=== PATIENT | male | born 1960 | race Caucasian/White ===

== ENCOUNTER 2017-04-14 15:49 | Emergency (ER) | payer BC ==
[~2017-04-14] VITALS: Ht 177.8 cm; Wt 80.0 kg
[2017-04-14 15:57] VITALS: Ht 177.8 cm; Wt 80.0 kg
[2017-04-14] MEDS ORDERED: SOD CHLORIDE 0.9% 500 ML IV STA (16:28)
[2017-04-14] MEDS ORDERED: KETOROLAC 30 MG INJ IV STA (16:28)
--- NOTE | 2017-04-14 16:46 | ERD ---
ER Documentation Chief Complaint Date/Time DATE: 04/14/17 TIME: 16:44 Chief Complaint CHEST CONGESTION FEVER X 4 DAYS. HPI Very pleasant 56-year-old male comes in for having cough for 4 days. Denies chest pain but states that when he coughs his head hurts worse. He has had a headache for 3 days. Has had chills and felt warm. Has had generalized malaise. ROS All systems reviewed and are negative except as per history of present illness. Medications Home Meds Active Scripts Naproxen* (Naproxen*) 500 Mg Tablet, 500 MG PO BID Y for PAIN, #10 TAB Prov:SUDHA MEJIAS DO 04/14/17 Albuterol Sulfate* (Ventolin HFA*) 18 Gm Hfa.aer.ad, 2 PUFF INHALATION Q4H, #1 INHALER Prov:SUDHA MEJIAS DO 04/14/17 Levofloxacin* (Levaquin*) 750 Mg Tablet, 750 MG PO DAILY for 4 Days, TAB start tommorrow. 04/15 Prov:SUDHA MEJIAS DO 04/14/17 Allergies Allergies: Coded Allergies: No Known Allergy (Unverified , 04/14/17) Physical Exam Vitals Vital Signs Date Time Temp Pulse Resp B/P Pulse Ox O2 Delivery O2 Flow Rate FiO2 04/14/17 15:57 99.9 105 18 145/81 97 Physical Exam Const: [] Mild distress Head: Atraumatic Eyes: Normal Conjunctiva EOMI, PERRL ENT: Normal External Ears, Nose and Mouth. Resp: Clear to auscultation bilaterally Cardio: Mild regular tachycardia, no murmurs Skin: No petechiae or rashes Ext: No cyanosis, or edema Neur: Awake and alert oriented 3, no focal deficit Result Diagram: 04/14/17 1640 04/14/17 1640 Results 24 hrs Laboratory Tests Test 04/14/17 16:40 04/14/17 17:20 White Blood Count 8.510^3/ul Red Blood Count 4.3710^6/ul Hemoglobin 13.9g/dl Hematocrit 41.9% Mean Corpuscular Volume 95.9fl Mean Corpuscular Hemoglobin 31.8pg Mean Corpuscular Hemoglobin Concent 33.2g/dl Red Cell Distribution Width 11.7% Platelet Count 17569^3/UL Mean Platelet Volume 11.1fl Neutrophils % 64.1% Lymphocytes % 22.1% Monocytes % 8.8% Eosinophils % 4.0% Basophils % 0.5% Nucleated Red Blood Cells % 0.0/100WBC Neutrophils # 5.510^3/ul Lymphocytes # 1.910^3/ul Monocytes # 0.810^3/ul Eosinophils # 0.310^3/ul Basophils # 0.010^3/ul Nucleated Red Blood Cells # 0.010^3/ul Sodium Level 142mmol/L Potassium Level 4.3mmol/L Chloride Level 103mmol/L Carbon Dioxide Level 28mmol/L Anion Gap 15 Blood Urea Nitrogen 10mg/dl Creatinine 0.88mg/dl Glucose Level 106mg/dl Calcium Level 9.3mg/dl Troponin I < 0.012ng/ml Current Medications Medications (Trade) Dose Ordered Sig/Liborio Route PRN Reason Start Time Stop Time Status Last Admin Dose Admin Sodium Chloride (NS) 500 ml @ 500 mls/hr Q1H STAT IV 04/14/17 16:28 04/14/17 17:27 DC 04/14/17 16:46 Ketorolac Tromethamine 30 mg 30 mg ONCE STAT IV 04/14/17 16:28 04/14/17 16:30 DC 04/14/17 16:46 Levofloxacin/ Dextrose (Levaquin 500mg/ D5W 100 ml (Pmx)) 100 ml @ 100 mls/hr ONCE ONCE IVPB 04/14/17 18:30 04/14/17 19:29 04/14/17 18:29 Procedures/MDM Community-acquired pneumonia with a right lung infiltrate. No elevated white count. Patient was initially tachycardic which resolved. No signs of cardiac ischemia as reason for shortness of breath. Was given Levaquin 1 dose in the emergency room to begin treating the infection quickly patient was having increasing distress at night. Does not want to be admitted to the hospital and I feel it is appropriate to treat as an outpatient. Is also given Toradol which did decrease his headache. I have low suspicion for subarachnoid hemorrhage. Discharging primary care follow-up and return precautions. EKG interpretation: Normal sinus rhythm rate of 97, normal axis, no ST or T- wave changes concerning for acute ischemia. Normal EKG chestX-ray interpretation: Right lateral lung infiltrate, no pulmonary edema, no pneumothorax, no fractures. Departure Diagnosis: Primary Impression: Community acquired pneumonia Condition: Stable SUDHA MEJIAS DO Apr 14, 2017 16:46
[2017-04-14 16:57] LABS: BASOPHILS % 0.5 % (0.0-2.0); EOSINOPHILS # 0.3 10^3/ul (0.0-0.5); HEMATOCRIT 41.9 % (42.0-52.0); HEMOGLOBIN 13.9 g/dl (14.0-18.0); LYMPHOCYTES # 1.9 10^3/ul (0.8-2.9); LYMPHOCYTES % 22.1 % (15.0-51.0); MEAN CORPUSCULAR HEMOGLOBIN 31.8 pg (29.0-33.0); MEAN CORPUSCULAR HGB CONC 33.2 g/dl (32.0-37.0); MEAN CORPUSCULAR VOLUME 95.9 fl (82.0-101.0); MEAN PLATELET VOLUME 11.1 fl (7.4-10.4); MONOCYTE # 0.8 10^3/ul (0.3-0.9); MONOCYTES % 8.8 % (0.0-11.0); NEUTROPHIL # 5.5 10^3/ul (1.6-7.5); NEUTROPHILS % 64.1 % (39.0-77.0); PLATELET COUNT 201 10^3/UL (140-415); RED BLOOD COUNT 4.37 10^6/ul (4.70-6.10); RED CELL DISTRIBUTION WIDTH 11.7 % (11.5-14.5); WHITE BLOOD COUNT 8.5 10^3/ul (4.8-10.8)
[2017-04-14 17:20] LABS: CALCIUM 9.3 mg/dl (8.4-10.2); CREATININE 0.88 mg/dl (0.61-1.24); POTASSIUM 4.3 mmol/L (3.5-5.1)
--- NOTE | 2017-04-14 17:52 | RADRPT ---
PROCEDURE: Chest x-ray CLINICAL INDICATION: Cough and chest pain TECHNIQUE: Chest single view COMPARISON: None FINDINGS: The heart is normal in size. The pulmonary vessels are normal in caliber. This ground-glass infilt rate in the right lower lobe consistent with pneumonia. Left lung is clear. Costophrenic angles are sharp. IMPRESSION: Ground-glass slightly wedge-shaped opacity in the right lower lobe. This likely represents an area o f pneumonia. However, given the slightly wedge-shaped appearance area of infarction is not excluded. RPTAT: HH .Anthony Barth MD, MD Date Time Electronically viewed and signed by .Anthony Barth MD, on 04/14/2017 17:52 .W/
[2017-04-14] MEDS ORDERED: LEVOFLOXACIN 500MG/D5W (PMX) 100 ML IVPB ONE (18:30)
[2017-04-14] MEDS ORDERED: LEVO750T25 PO (18:41)
[2017-04-14] MEDS ORDERED: ALBU18HF INHALATION (18:42)
[2017-04-14] MEDS ORDERED: NAPR-688 PO (18:42)
[2017-04-14 19:10] VITALS: BP 132/78; PULSE 80; RESP 17
== END 2017-04-14 19:00 | disposition home or self-care (01) ==
LOC: E/R 15:49
DX: J18.9 Pneumonia, unspecified organism (principal); R07.9 Chest pain, unspecified
CPT/HCPCS: 36415; 71010; 80048; 84484; 85025; 93005; 96374; 96375; 99285; J1885; J7040

== ENCOUNTER → 2017-04-29 | Outpatient (CLI) | payer BC ==
[~2017-04-29] MED LIST: ALBU18HF INHALATION; LEVO750T25 PO; NAPR-688 PO
[2017-04-29 09:03] LABS: BASOPHIL # 0.1 10^3/ul (0.0-0.1); BASOPHILS % 1.3 % (0.0-2.0); EOSINOPHILS # 0.4 10^3/ul (0.0-0.5); EOSINOPHILS % 4.8 % (0.0-7.0); HEMATOCRIT 44.9 % (42.0-52.0); LYMPHOCYTES # 2.6 10^3/ul (0.8-2.9); LYMPHOCYTES % 28.2 % (15.0-51.0); MEAN CORPUSCULAR HEMOGLOBIN 31.2 pg (29.0-33.0); MEAN CORPUSCULAR HGB CONC 33.4 g/dl (32.0-37.0); MEAN CORPUSCULAR VOLUME 93.3 fl (82.0-101.0); MEAN PLATELET VOLUME 9.9 fl (7.4-10.4); MONOCYTE # 0.4 10^3/ul (0.3-0.9); MONOCYTES % 4.9 % (0.0-11.0); NEUTROPHIL # 5.4 10^3/ul (1.6-7.5); NEUTROPHILS % 59.7 % (39.0-77.0); PLATELET COUNT 255 10^3/UL (140-415); RED BLOOD COUNT 4.81 10^6/ul (4.70-6.10); RED CELL DISTRIBUTION WIDTH 11.9 % (11.5-14.5)
[2017-04-29 09:06] LABS: ADD UMIC NO; UR ASCORBIC ACID NEGATIVE (NEGATIVE); UR BILIRUBIN (Dip) NEGATIVE (NEGATIVE); UR BLOOD (Dip) NEGATIVE (NEGATIVE); UR CLARITY CLEAR (CLEAR); UR COLOR YELLOW (YELLOW); UR GLUCOSE (Dip) NEGATIVE (NEGATIVE); UR KETONES (Dip) NEGATIVE (NEGATIVE); UR LEUKOCYTE ESTERASE (Dip) NEGATIVE Leu/ul (NEGATIVE); UR NITRITE (Dip) NEGATIVE (NEGATIVE); UR SPECIFIC GRAVITY (Dip) 1.018 (1.003-1.030); UR TOTAL PROTEIN (Dip) NEGATIVE (NEGATIVE); UR UROBILINOGEN (Dip) NEGATIVE (NEGATIVE)
[2017-04-29 09:23] LABS: BILIRUBIN,INDIRECT 0.3 mg/dl (0-1.1); BILIRUBIN,TOTAL 0.3 mg/dl (0.2-1.3); CALCIUM 9.4 mg/dl (8.4-10.2); CREATININE 0.91 mg/dl (0.61-1.24); POTASSIUM 4.3 mmol/L (3.5-5.1)
[2017-04-29 09:53] LABS: PROSTATE SPECIFIC ANTIGEN 23.1 ng/ml (0.0-4.0); THYROID STIMULATING HORMONE 1.59 MIU/L (0.465-4.680)
== END | disposition home or self-care (01) ==
LOC: LAB 08:26
PROVIDERS: ATTEND Legal Medicine
DX: Z00.00 Encounter for general adult medical examination without abnormal findings (principal)
CPT/HCPCS: 80053; 81003; 82306; 84153; 84154; 84403; 84443; 85025; 85651; 86140; 87086

== ENCOUNTER → 2017-05-19 | Outpatient (CLI) | payer BC | END | disposition home or self-care (01) | LOC: LAB 16:04 | PROVIDERS: ATTEND Legal Medicine | DX: R97.20 Elevated prostate specific antigen [PSA] (principal) | CPT/HCPCS: 84153; 84154 ==

== ENCOUNTER → 2017-08-25 | Outpatient (CLI) | END | disposition home or self-care (01) ==

== ENCOUNTER → 2018-01-10 | Outpatient (CLI) | END | disposition home or self-care (01) ==

== ENCOUNTER → 2018-07-11 | Outpatient (CLI) | payer BC | END | disposition home or self-care (01) | LOC: LAB 08:44 | PROVIDERS: ATTEND Legal Medicine | DX: E78.5 Hyperlipidemia, unspecified (principal); K21.9 Gastro-esophageal reflux disease without esophagitis; E11.9 Type 2 diabetes mellitus without complications; R10.9 Unspecified abdominal pain; I25.10 Atherosclerotic heart disease of native coronary artery without angina pectoris; N40.0 Benign prostatic hyperplasia without lower urinary tract symptoms; N52.9 Male erectile dysfunction, unspecified; I10 Essential (primary) hypertension; E03.9 Hypothyroidism, unspecified; D64.9 Anemia, unspecified | CPT/HCPCS: 80053; 80061; 81001; 82150; 82306; 82607; 82728; 82746; 83540; 83690; 84153; 84154; 84403; 84439; 84443; 85025 ==

== ENCOUNTER 2018-09-17 16:05 | Emergency (ER) | payer BC ==
[~2018-09-17] VITALS: Ht 180.3 cm; Wt 92.7 kg
[2018-09-17 16:11] VITALS: BP 114/65; PULSE 100; RESP 16; Ht 180.3 cm; Wt 92.7 kg
--- NOTE | 2018-09-17 16:16 | ERD ---
ER Documentation Chief Complaint Chief Complaint LT ARM LAC/ALUVSION FROM SAW HPI 57-year-old male, previously, presents to the emergency department, complaining of left arm laceration from an electric saw that occurred approximately 30 minutes prior to arrival, the patient was brought in by ambulance. The pain is 7/10. He ROS All systems reviewed and are negative except as per history of present illness. Medications Home Meds Active Scripts Naproxen* (Naproxen*) 500 Mg Tablet, 500 MG PO BID PRN for PAIN, #10 TAB Prov:SUDHA MEJIAS DO 04/14/17 Albuterol Sulfate* (Ventolin HFA*) 18 Gm Hfa.aer.ad, 2 PUFF INHALATION Q4H, #1 INHALER Prov:SUDHA MEJIAS DO 04/14/17 Levofloxacin* (Levaquin*) 750 Mg Tablet, 750 MG PO DAILY for 4 Days, TAB start tommorrow. 04/15 Prov:SUDHA MEJIAS DO 04/14/17 Allergies Allergies: Coded Allergies: No Known Allergy (Unverified , 04/14/17) PMhx/Soc Hx Alcohol Use: Yes (SOCIALLY) Hx Substance Use: No Hx Tobacco Use: No Physical Exam Vitals Vital Signs Date Temp Pulse Resp B/P (MAP) Pulse Ox O2 O2 Flow FiO2 Time Delivery Rate 09/17/18 97.9 100 16 114/65 100 16:11 (81) Physical Exam Const: No acute distress Head: Atraumatic Eyes: Normal Conjunctiva ENT: Normal External Ears, Nose and Mouth. Neck: Full range of motion. No meningismus. Resp: Clear to auscultation bilaterally Cardio: Regular rate and rhythm, no murmurs Abd: Soft, non tender, non distended. Normal bowel sounds Skin: No petechiae or rashes Back: No midline or flank tenderness Ext: No cyanosis, or edema Neur: Awake and alert Psych: Normal Mood and Affect Results 24 hrs Current Medications Medications Dose Sig/Liborio Start Time Status Last (Trade) Ordered Route PRN Stop Time Admin Dose Reason Admin Diphtheria/ 0.5 ml ONCE ONCE 09/17/18 DC 09/17/18 Tetanus/Acell IM* 16:30 16:37 Pertussis 09/17/18 16:31 (Adacel) Lidocaine 4 applic ONCE STAT 09/17/18 DC 3/17/19 (Lmx 4% Plus) TOP 16:19 16:35 09/17/18 16:25 Ketorolac 15 mg ONCE STAT 09/17/18 DC 09/17/18 Tromethamine IV 16:19 16:36 (Toradol) 09/17/18 16:25 Cefazolin 50 ml @ ONCE IVPB 09/17/18 DC 09/17/18 Sodium 100 mls/hr 16:30 16:36 09/17/18 16:59 Lidocaine/ 20 ml ONCE ONCE 09/17/18 DC Epinephrine INJ 16:30 (Xylocaine 09/17/18 16:31 2%/ Epi (Mdv) 20 ml) Procedures/MDM Vital signs stable, the patient was evaluated for foreign body, open fracture, nerve/vascular/tendon injury. Neurovascular exam intact. Pertinent data: Procedure: Laceration repair The procedure was explained and consent obtained. Anesthesia: 1% lidocaine [with] epinephrine locally Location: [] Tendon/Joint/Nerves: No injury Foreign body: None detected after copious irrigation and exploration Technique: Simple Interrupted Sutures Complexity: No subcutaneous sutures/mucosal repair/edge excision Post Closure Length: [] cm The patient tolerated the procedure well without complications. clinical impression and possible complications like infection and a scar where discussed with [] who agreed with management. The patient is stable to be treated outpatient and will be discharged home with a Rx for [], some side effects of prescribed medications (headache, rash, nausea, vomiting, diarrhea, interactions with other medications) were reviewed. The patient was instructed to follow up with the primary care provider in the next 48h for wound check. If symptoms persist, worsen or new symptoms develop, then patient should return to the ED immediately. Stitches can be removed in days. Instructions explained and given directly by me to the patient with acknowledgment and demonstrated understanding. Disclaimer: Inadvertent spelling and grammatical errors are likely due to EHR/dictation software use and do not reflect on the overall quality of patient care. Also, please note that the electronic time recorded on this note does not necessarily reflect the actual time of the patient encounter. Departure Diagnosis: Primary Impression: Laceration of left forearm Condition: Stable Additional Instructions: Thank you very much for allowing us to participate in your care. Your health and safety is our top priority at [facility]. Call your primary care doctor TOMORROW for an appointment during the next 2-4 days and bring all the information and medications prescribed. Have prescriptions filled and follow precisely the directions on the label. If the symptoms get worse and your provider is unavailable, return to the Emergency Department immediately. KAYLEEN ELLIOTT MD Sep 17, 2018 16:16
[2018-09-17] MEDS ORDERED: KETOROLAC 30 MG INJ IV STA (16:19)
[2018-09-17] MEDS ORDERED: LIDOCAINE 4% CR TOP STA (16:19)
[2018-09-17] MEDS ORDERED: DIPHTH/TET/ACEL PERTUSS (ADULT) 0.5 ML VIAL IM* ONE (16:30)
[2018-09-17] MEDS ORDERED: CEFAZOLIN 1 GM/50 ML (PMX) 50 ML IVPB SCH (16:30)
[2018-09-17] MEDS ORDERED: LIDOCAINE 2%/EPI (MDV) 20ML INJ INJ ONE (16:30)
[2018-09-17] MEDS ORDERED: ACET325T33 PO (18:00)
[2018-09-17] MEDS ORDERED: HYDR-4011 PO (18:00)
[2018-09-17] MEDS ORDERED: CEPH-443 PO (18:00)
== END 2018-09-17 18:39 | disposition home or self-care (01) ==
LOC: FTE 16:05
DX: S51.812A Laceration without foreign body of left forearm, initial encounter (principal); W29.3XXA Contact with powered garden and outdoor hand tools and machinery, initial encounter; Y92.9 Unspecified place or not applicable; Z23 Encounter for immunization
CPT/HCPCS: 12001; 73080; 90471; 90715; 96365; 96366; 96375; 99284; J0690; J1885

== ENCOUNTER 2018-09-28 20:09 | Emergency (ER) | payer BC ==
[~2018-09-28] VITALS: Ht 180.3 cm; Wt 95.3 kg
[~2018-09-28 20:09] MED LIST changes: +ACET325T33 PO; +CEPH-443 PO; +HYDR-4011 PO
[2018-09-28 20:19] VITALS: BP 136/74; PULSE 85; RESP 18; Ht 180.3 cm; Wt 95.3 kg
--- NOTE | 2018-09-28 22:58 | ERD ---
ER Documentation Chief Complaint Chief Complaint suture removal left arm, here about 11 days ago for repair HPI History of Present Illness: Patient coming in today with complaint of suture removal to left upper arm. Patient reports coming to [facility] ER on 09/17/18 for laceration repair due to getting cut with the blade. Patient denies any complications. Patient reports taking full course of antibiotics. ROS All systems reviewed and are negative except as per history of present illness. Medications Home Meds Active Scripts Hydrocodone/Acetaminophen ([place] 5-325 Tablet) 1 Each Tablet, 1 TAB PO QHS PRN for PAIN for 5 Days, #5 TAB Prov:KAYLEEN ELLIOTT MD 09/17/18 Cephalexin* (Keflex*) 500 Mg Capsule, 500 MG PO BID for 5 Days, CAP Prov:KAYLEEN ELLIOTT MD 09/17/18 Acetaminophen* (Tylenol*) 325 Mg Tablet, 2 TAB PO Q8 PRN for PAIN AND OR ELEVATED TEMP, #20 TAB Prov:KAYLEEN ELLIOTT MD 09/17/18 Naproxen* (Naproxen*) 500 Mg Tablet, 500 MG PO BID PRN for PAIN, #10 TAB Prov:SUDHA MEJIAS DO 04/14/17 Albuterol Sulfate* (Ventolin HFA*) 18 Gm Hfa.aer.ad, 2 PUFF INHALATION Q4H, #1 INHALER Prov:SUDHA MEJIAS DO 04/14/17 Levofloxacin* (Levaquin*) 750 Mg Tablet, 750 MG PO DAILY for 4 Days, TAB start tommorrow. 04/15 Prov:SUDHA MEJIAS DO 04/14/17 Allergies Allergies: Coded Allergies: No Known Allergy (Unverified , 04/14/17) PMhx/Soc History of Surgery: Yes (hemroidectomy) Anesthesia Reaction: No Hx Neurological Disorder: No Hx Cardiac Disorders: No Hx Psychiatric Problems: No Hx Miscellaneous Medical Probl: Yes (left arm celulitus) Hx Alcohol Use: Yes (SOCIALLY) Hx Substance Use: No Hx Tobacco Use: No FmHx Family History: No diabetes Physical Exam Vitals Vital Signs Date Temp Pulse Resp B/P (MAP) Pulse Ox O2 O2 Flow FiO2 Time Delivery Rate 09/28/18 98.0 85 18 136/74 99 20:19 (94) Physical Exam Const: No acute distress Head: Atraumatic Eyes: Normal Conjunctiva ENT: Normal External Ears, Nose and Mouth. Neck: Full range of motion. No meningismus. Resp: Clear to auscultation bilaterally Cardio: Regular rate and rhythm, no murmurs Abd: Soft, non tender, non distended. Normal bowel sounds Skin: No petechiae or rashes. Healing laceration noted to left upper arm, 12 sutures present, no dehiscence, no purulent drainage, no erythema, no warmth. Back: No midline or flank tenderness Ext: No cyanosis, or edema Neur: Awake and alert Psych: Normal Mood and Affect Procedures/MDM ED course includes a thorough examination and history. ED course includes suture removal. Suture Removal by me: 12 Sutures removed with tweezers and scissors without incident. Wound shows no evidence of infection, foreign body, neurologic injury, vascular injury, open joint or tendon laceration. Patient to follow up PRN. Low suspicion for life-threatening medical emergency. Otherwise healthy patient presenting with constellation of symptoms likely representing uncomplicated suture removal encounter as characterized by history, physical exam findings. No respiratory distress, otherwise relatively well appearing and nontoxic. Patient educated on diagnoses, prescriptions, follow-up care, return precautions. Strict return precautions given for worsening condition; questions answered discharge. Disposition for discharge with followup in PRN with PCP/clinic. Departure Diagnosis: Primary Impression: Encounter for removal of sutures Condition: Stable Patient Instructions: Suture Removal, No Complication Referrals: [facility] SCRUGGS (PCP) [facility] YOU HAVE RECEIVED A MEDICAL SCREENING EXAM AND THE RESULTS INDICATE THAT YOU DO NOT HAVE A CONDITION THAT REQUIRES URGENT TREATMENT IN THE EMERGENCY DEPARTMENT. FURTHER EVALUATION AND TREATMENT OF YOUR CONDITION CAN WAIT UNTIL YOU ARE SEEN IN YOUR DOCTORS OFFICE WITHIN THE NEXT 1-2 DAYS. IT IS YOUR RESPONSIBILITY TO MAKE AN APPOINTMENT FOR FOLOW-UP CARE. IF YOU HAVE A PRIMARY DOCTOR --you should call your primary doctor and schedule an appointment IF YOU DO NOT HAVE A PRIMARY DOCTOR YOU CAN CALL OUR PHYSICIAN REFERRAL HOTLINE AT IF YOU CAN NOT AFFORD TO SEE A PHYSICIAN YOU CAN CHOSE FROM THE FOLLOWING COMMUNITY CLINICS [facility] [address] [facility]. [facility] [address] [facility]. [facility] [address] [facility]. [facility] [address] [facility]. [facility] [address] [facility]. [facility]. [address] [facility]. [facility] YOU HAVE RECEIVED A MEDICAL SCREENING EXAM AND THE RESULTS INDICATE THAT YOU DO NOT HAVE A CONDITION THAT REQUIRES URGENT TREATMENT IN THE EMERGENCY DEPARTMENT. FURTHER EVALUATION AND TREATMENT OF YOUR CONDITION CAN WAIT UNTIL YOU ARE SEEN IN YOUR DOCTORS OFFICE WITHIN THE NEXT 1-2 DAYS. IT IS YOUR RESPONSIBILITY TO MAKE AN APPOINTMENT FOR FOLOW-UP CARE. IF YOU HAVE A PRIMARY DOCTOR --you should call your primary doctor and schedule and appointment IF YOU DO NOT HAVE A PRIMARY DOCTOR YOU CAN CALL OUR PHYSICIAN REFERRAL HOTLINE AT . IF YOU CAN NOT AFFORD TO SEE A PHYSICIAN YOU CAN CHOSE FROM THE FOLLOWING [facility] INSTITUTIONS: [facility] [address] [place] [address] [facility] [address] [place] [address] [facility] + [facility] [address] [place] [address] Additional Instructions: Follow-up with your primary care doctor as needed. BRAN RODAS NP Sep 28, 2018 22:58
== END 2018-09-28 20:48 | disposition home or self-care (01) ==
LOC: FTE 20:09
DX: Z48.02 Encounter for removal of sutures (principal)
CPT/HCPCS: 99281

== ENCOUNTER 2018-11-07 18:55 | Emergency (ER) | payer BC, MEDICAID ==
[~2018-11-07] VITALS: Ht 180.3 cm; Wt 94.1 kg
[2018-11-07 19:12] VITALS: Ht 180.3 cm; Wt 94.1 kg
--- NOTE | 2018-11-07 19:13 | ERD ---
ER Documentation Chief Complaint Chief Complaint cough HPI The patient is a 57-year-old male, presenting to the ER because of persistent cough for the last 5 weeks, nasal discharge for the last 3 days, denies fever chills, neck pain, chest pain, dyspnea, abdominal pain, vomiting, dizzy, diarrhea. He does not smoke, drinks socially Past medical history: None Past surgical history: Hemorrhoidectomy ROS All systems reviewed and are negative except as per history of present illness. Medications Home Meds Active Scripts Promethazine/Phenyleph/Codeine (Beynxrsogpbq-YC-Vkhyfws Syrup) 118 Ml Syrup, 10 ML PO Q6, #120 ML Prov:SRIDHAR HARRIS MD 11/07/18 Loratadine/Pseudoephedrine (CLARITIN-D 24 HOUR TABLET) 1 Each Tab.er.24h, 1 TAB PO DAILY, #10 TAB Prov:SRIDHAR HARRIS MD 11/07/18 Dextromethorphan Hb-Promethazine Hcl* (Promethazine DM* Syrup) 473 Ml Syrup, 10 ML PO Q6 PRN for COUGH, #120 ML Prov:SRIDHAR HARRIS MD 11/07/18 Azithromycin* (Zithromax*) 250 Mg Tablet, 250 MG PO .CoreyPACK DIRECTED, #6 TAB TAKE 500 MG (2 TABS) THE FIRST DAY THEN 250 MG (1 TAB) DAYS 2-5 Prov:SRIDHAR HARRIS MD 11/07/18 Hydrocodone/Acetaminophen ([place] 5-325 Tablet) 1 Each Tablet, 1 TAB PO QHS PRN for PAIN for 5 Days, #5 TAB Prov:KAYLEEN ELLIOTT MD 09/17/18 Cephalexin* (Keflex*) 500 Mg Capsule, 500 MG PO BID for 5 Days, CAP Prov:KAYLEEN ELLIOTT MD 09/17/18 Acetaminophen* (Tylenol*) 325 Mg Tablet, 2 TAB PO Q8 PRN for PAIN AND OR ELEVATED TEMP, #20 TAB Prov:KAYLEEN ELLIOTT MD 09/17/18 Naproxen* (Naproxen*) 500 Mg Tablet, 500 MG PO BID PRN for PAIN, #10 TAB Prov:SUDHA MEJIAS DO 04/14/17 Albuterol Sulfate* (Ventolin HFA*) 18 Gm Hfa.aer.ad, 2 PUFF INHALATION Q4H, #1 INHALER Prov:SUDHA MEJIAS DO 04/14/17 Levofloxacin* (Levaquin*) 750 Mg Tablet, 750 MG PO DAILY for 4 Days, TAB start tommorrow. 04/15 Prov:SUDHA MEJIAS DO 04/14/17 Allergies Allergies: Coded Allergies: No Known Allergy (Unverified , 04/14/17) PMhx/Soc History of Surgery: Yes (hemroidectomy) Anesthesia Reaction: No Hx Neurological Disorder: No Hx Cardiac Disorders: No Hx Psychiatric Problems: No Hx Miscellaneous Medical Probl: Yes (left arm celulitus) Hx Alcohol Use: Yes (SOCIALLY) Hx Substance Use: No Hx Tobacco Use: No Physical Exam Physical Exam Const: No acute distress. Head: Atraumatic. Eyes: Normal Conjunctiva. ENT: Normal External Ears, Nose and Mouth. Neck: Full range of motion. No meningismus. Resp: Mild bilateral expiratory wheezes Cardio: Regular rate and rhythm. Abd: Soft, non distended, normal bowel sounds, non tender. Skin: No petechiae or rashes. Back: No midline or flank tenderness. Ext: No cyanosis, or edema. Neur: Awake and alert. No focal deficit Psych: Normal Mood and Affect. Results 24 hrs Laboratory Tests Test 11/07/18 19:32 11/07/18 19:41 White Blood Count 11.6 10^3/ul Red Blood Count 4.56 10^6/ul Hemoglobin 14.7 g/dl Hematocrit 43.8 % Mean Corpuscular Volume 96.1 fl Mean Corpuscular Hemoglobin 32.2 pg Mean Corpuscular Hemoglobin Concent 33.6 g/dl Red Cell Distribution Width 11.9 % Platelet Count 181 10^3/UL Mean Platelet Volume 11.1 fl Immature Granulocytes % 0.300 % Neutrophils % 80.6 % Lymphocytes % 13.2 % Monocytes % 5.0 % Eosinophils % 0.6 % Basophils % 0.3 % Nucleated Red Blood Cells % 0.0 /100WBC Immature Granulocytes # 0.040 10^3/ul Neutrophils # 9.4 10^3/ul Lymphocytes # 1.5 10^3/ul Monocytes # 0.6 10^3/ul Eosinophils # 0.1 10^3/ul Basophils # 0.0 10^3/ul Nucleated Red Blood Cells # 0.0 10^3/ul Prothrombin Time 12.4 Sec Prothrombin Time Ratio 1.0 INR International Normalized Ratio 0.91 Activated Partial Thromboplast Time 29.8 Sec Sodium Level 141 mmol/L Potassium Level 4.0 mmol/L Chloride Level 106 mmol/L Carbon Dioxide Level 26 mmol/L Anion Gap 9 Blood Urea Nitrogen 13 mg/dl Creatinine 0.84 mg/dl Est Glomerular Filtrat Rate mL/min > 60 mL/min Glucose Level 120 mg/dl POC Venous Lactate 1.6 mmol/L Calcium Level 9.5 mg/dl Total Bilirubin 0.3 mg/dl Direct Bilirubin 0.00 mg/dl Indirect Bilirubin 0.3 mg/dl Aspartate Amino Transf (AST/SGOT) 23 IU/L Alanine Aminotransferase (ALT/SGPT) 26 IU/L Alkaline Phosphatase 45 IU/L Troponin I < 0.012 ng/ml Total Protein 7.1 g/dl Albumin 4.2 g/dl Globulin 2.90 g/dl Albumin/Globulin Ratio 1.44 Urine Color YELLOW Urine Clarity CLEAR Urine pH 7.0 Urine Specific [place] 1.014 Urine Ketones NEGATIVE mg/dL Urine Nitrite NEGATIVE mg/dL Urine Bilirubin NEGATIVE mg/dL Urine Urobilinogen NEGATIVE mg/dL Urine Leukocyte Esterase NEGATIVE Rebecca/ul Urine Hemoglobin NEGATIVE mg/dL Urine Glucose NEGATIVE mg/dL Urine Total Protein NEGATIVE mg/dl Current Medications Medications Dose Sig/Liborio Start Time Status Last (Trade) Ordered Route PRN Stop Time Admin Dose Reason Admin 1.25 mg ONCE ONCE 11/07/18 DC 11/07/18 Levalbuterol HHN 19:30 11/07/18 19:42 (Xopenex 19:31 Neb) Ipratropium 0.5 mg ONCE ONCE 11/07/18 DC 11/07/18 [place] HHN 19:30 11/07/18 19:42 (Atrovent 19:31 0.02% (Neb)) Promethazine 10 ml ONCE ONCE 11/07/18 DC 11/07/18 HCl/ PO 19:30 11/07/18 19:47 Codeine 19:31 (Phenergan/ Codeine) Procedures/[address] [address] Radiology Main Line: [phone] DIAGNOSTIC IMAGING REPORT Patient: JAY JAY JOHN : 1960 Age: 57 Sex: M MR #: [id number] DOS: 11/07/181920 Ordering MD: SRIDHAR HARRIS MD Location: E/R Room/Bed: PROCEDURE: XR Chest. CLINICAL INDICATION: Shortness of breath TECHNIQUE: A frontal view of the chest was performed. COMPARISON: April 14, 2017 FINDINGS: The cardiomediastinal silhouette is within normal limits. The lungs are clear. No signs of pleural fluid or pneumothorax are seen. The osseous structures and soft tissues are unremarkable. IMPRESSION: No evidence for active cardiopulmonary disease. No interval change. RPTAT: EE .Maritza Tovar MD, Date Time Electronically viewed and signed by .Maritza Tovar MD, MD on 11/07/2018 20:10 .F/ CC: SRIDHAR HARRIS MD [id number] EKG: Read by emergency physician Rate/Rhythm: Sinus tachycardia 103 beats/min QRS, ST, T-waves: No ST elevation, no T inversion Impression: Abnormal EKG MEDICAL MAKING DECISION: The patient is a 57-year-old male, presenting with acute bronchitis, was treated with Xopenex 1.25 and Atrovent 0.5 mg for wheezing, Phenergan with codeine 10 mL p.o. for cough with good response, is stable for present follow-up The differential diagnoses considered include but are not limited to asthma, COPD, pneumonia, pulmonary embolus, pleural effusion, congestive heart failure. Departure Diagnosis: Primary Impression: Bronchitis Condition: Good Comments He was discharged with Zithromax, Phenergan with codeine, Claritin-D The patient's blood pressure was elevated (>120/80) but appears stable without evidence of hypertension emergency or urgency. The patient was counseled about the risks of hypertension and urged to pursue outpatient monitoring and therapy within a week with their primary care physician. I discussed the findings with the patient. I advised the patient to follow-up with the primary physician in about 2-3 days, sooner if needed and return if any concern. Disclaimer: Inadvertent spelling and grammatical errors are likely due to EHR/dictation software use and do not reflect on the overall quality of patient care. Also, please note that the electronic time recorded on this note does not necessarily reflect the actual time of the patient encounter. SRIDHAR HARRIS MD November 07, 2018 19:13
[2018-11-07] MEDS ORDERED: LEVALBUTEROL (NEB) 1.25 MG/0.5 ML AMP HHN ONE (19:30)
[2018-11-07] MEDS ORDERED: PROMETHAZINE/CODEINE 5ML CUP PO ONE (19:30)
[2018-11-07] MEDS ORDERED: IPRATROPIUM (NEB) 0.5 MG/2.5 ML AMP HHN ONE (19:30)
[2018-11-07] MEDS ORDERED: AZIT250T PO (20:48)
[2018-11-07] MEDS ORDERED: LORA-777 PO (20:49)
[2018-11-07] MEDS ORDERED: D-ME473S2 PO (20:49)
[2018-11-07] MEDS ORDERED: PROM118S PO (20:52)
[2018-11-07 21:00] VITALS: BP 135/87; PULSE 100; RESP 18
== END 2018-11-07 21:03 | disposition home or self-care (01) ==
LOC: E/R 18:55
DX: J40 Bronchitis, not specified as acute or chronic (principal); R06.02 Shortness of breath
CPT/HCPCS: 36415; 71045; 80053; 81003; 83605; 84484; 85025; 85610; 85730; 87040; 87086; 93005; 94664; Z7502; Z7610